=== PATIENT | male | born 1995 | race Caucasian/White ===

== ENCOUNTER 2019-05-16 16:43 | Emergency (ER) | payer BC, OTHER ==
[~2019-05-16] VITALS: Ht 185.4 cm; Wt 86.3 kg
[2019-05-16] MEDS ORDERED: TETANUS,DIPTH,PERTUSS P/F (BOOSTRIX) 0.5 ML VIAL IM ONE (17:15)
--- NOTE | 2019-05-16 17:42 | ED Upper Extremity ---
General Chief Complaint: Upper Extremity Stated Complaint: L HAND INJ Nursing Triage Note: PT TO ED W/ PARENT FOR C/O LT HAND SWELLING ONSET LAST NOC AFTER HITTING A TREE. PT REPORTS WAS "DRUNK ET MAD AND IT SEEMED LIKE THE RIGHT THING TO DO." EDEMA ET ABRASION NOTED OVER 5TH KNUCKLE LT HAND. NO OTHER C/O VOICED. Nursing Sepsis Screen: No Definite Risk Source: patient Exam Limitations: no limitations History of Present Illness Date Seen by Provider: May 16, 2019 Time Seen by Provider: 17:08 Allergies and Home Medications Allergies Coded Allergies: No Known Drug Allergies (Unverified , 05/16/19) Past Jojskxf-Oixkuy-Lmjnrf Hx Patient Social History Alcohol Use: Rarely Uses Recreational Drug Use: No Drug of Choice: MARIJUANA Smoking Status: Never a Smoker 2nd Hand Smoke Exposure: No Recent Foreign Travel: No Contact w/Someone Who Travel: No Recent Infectious Disease Expo: No Recent Hopitalizations: No Physical Abuse: No Sexual Abuse: No Mistreated: No Fear: No Immunizations Up To Date Tetanus Booster (TDap): More than 5yrs Seasonal Allergies Seasonal Allergies: No Past Medical History Surgeries: Yes (left hand injury) Orthopedic, Tonsillectomy Respiratory: No Cardiac: No Neurological: No Genitourinary: No Gastrointestinal: No Musculoskeletal: No Endocrine: No HEENT: No Cancer: No Psychosocial: No Integumentary: Yes Eczema Blood Disorders: No Physical Exam Vital Signs Vital Signs - First Documented 05/16/19 17:05 Temp 36.1 Pulse 63 Resp 18 B/P (MAP) 131/75 (93) Pulse Ox 97 O2 Delivery Room Air Capillary Refill : Less Than 3 Seconds Height, Weight, BMI Height: '" Weight: lbs. oz. kg; 25.00 BMI Method: Progress/Results/Core Measures Results/Orders My Orders Orders - MIGUELINA SONG PA Hand, Left, 3 Views (05/16/19 17:07) Dipht,Pertuss(Acell),Tet Adult (Boostrix (05/16/19 17:15) Hydrocodone/Apap 5/325 Tablet (Lortab 5 (05/16/19 18:00) Medications Given in ED Current Medications Medications Dose Ordered Sig/Jamie Route Start Time Stop Time Status Last Admin Dose Admin Acetaminophen/ Hydrocodone Bitart 1 tab ONCE ONCE PO 05/16/19 18:00 05/16/19 18:01 05/16/19 17:53 1 TAB Diphtheria/ Tetanus/Acell Pertussis 0.5 ml ONCE ONCE IM 05/16/19 17:15 05/16/19 17:16 DC 05/16/19 17:22 0.5 ML Vital Signs/I&O 05/16/19 17:05 Temp 36.1 Pulse 63 Resp 18 B/P (MAP) 131/75 (93) Pulse Ox 97 O2 Delivery Room Air Blood Pressure Mean: 93 Departure Impression Primary Impression: Closed fracture of 3rd metacarpal Additional Impression: Closed fracture of 4th metacarpal Disposition: HOME, SELF-CARE Condition: Improved Departure-Patient Inst. Decision time for Depature: 17:57 Referrals: NO,LOCAL PHYSICIAN (PCP) Primary Care Physician BRITNI BECERRA MD Patient Instructions: Hand Fracture Add. Discharge Instructions: All discharge instructions reviewed with patient and/or family. Voiced understanding. Medications as instructed. No ibuprofen or Aleve. Keep the splint clean and dry. Arm sling as instructed. Right hand activities only until released by the orthopedic surgeon. Elevate the left hand on pillows and use an ice pack as needed for pain and swelling. Follow-up with Dr. Becerra as an outpatient within the next 7 days for recheck, call Friday morning for an appointment time. Return in the emergency department for worsened symptoms, increased pain from the splint, or any other concerns. 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 MIGUELINA SONG May 16, 2019 17:42
[2019-05-16] MEDS ORDERED: ACHD5005 PO (17:59)
[2019-05-16] MEDS ORDERED: HYDROcodone/APAP 5 MG/325 MG (LORTAB) TAB PO ONE (18:00)
[2019-05-16] MEDS ORDERED: RX-HYDROCODONE/APAP 5/325 MG #4 TAB PK PO PRN (18:15)
--- NOTE | 2019-05-16 18:24 | Diagnostic Imaging Report ---
Clinical indication: Patient punched a tree early this morning and has pain and swelling. Exam: X-ray of the left hand, 3 views. Comparison: None. Findings: Transverse fractures involving the mid diaphysis of the third and fourth metacarpal bones. There is mild dorsal apex angulation of these bones as well. There is no other fracture or dislocation seen. There is mild swelling of the metacarpal soft tissue region. Remainder of the left hand is unremarkable. Impression: There are transverse fractures involving the third and fourth metacarpal bones with dorsal apex angulation. Dictated by: Dictated on workstation # [id number]
[2019-05-16 18:48] VITALS: BP 130/81
== END 2019-05-16 18:48 | disposition home or self-care (01) ==
LOC: ER 16:45
DX: S62.303A Unspecified fracture of third metacarpal bone, left hand, initial encounter for closed fracture (principal); S62.305A Unspecified fracture of fourth metacarpal bone, left hand, initial encounter for closed fracture; Z90.89 Acquired absence of other organs; W22.8XXA Striking against or struck by other objects, initial encounter
CPT/HCPCS: 73130; 90715

== ENCOUNTER 2019-09-15 02:23 | Observation (INO) | payer BC ==
[~2019-09-15] VITALS: Ht 185 cm; Wt 90.3 kg
[2019-09-15] VITALS (11 sets, daily range): BP systolic 97–108; BP diastolic 44–70
[~2019-09-15 02:23] MED LIST: ACHD5005 PO
[2019-09-15 03:12] LABS: BASOPHILS % (AUTO) 0 % (0-10); EOSINOPHILS % (AUTO) 0 % (0-10); HEMATOCRIT 41 % (40-54); HEMOGLOBIN 14.4 G/DL (13.3-17.7); LYMPHOCYTES # (AUTO) 1.3 X 10^3 (1.0-4.0); LYMPHOCYTES % (AUTO) 7 % (12-44); MEAN CORPUSCULAR HEMOGLOBIN 30 PG (25-34); MEAN CORPUSCULAR HGB CONC 36 G/DL (32-36); MEAN CORPUSCULAR VOLUME 83 FL (80-99); MEAN PLATELET VOLUME 9.9 FL (7.4-10.4); MONOCYTES # (AUTO) 1.2 X 10^3 (0.0-1.0); MONOCYTES % (AUTO) 6 % (0-12); NEUTROPHILS # (AUTO) 16.2 X 10^3 (1.8-7.8); NEUTROPHILS % (AUTO) 87 % (42-75); PLATELET COUNT 242 10^3/uL (130-400); RED CELL DISTRIBUTION WIDTH 12.3 % (10.0-14.5); WHITE BLOOD COUNT 18.7 10^3/uL (4.3-11.0)
[2019-09-15] MEDS ORDERED: NS IV 1000 ML 1,000 ML IV SCH (03:15)
[2019-09-15 03:32] LABS: ACETAMINOPHEN < 10 UG/ML (10-30); SALICYLATE < 5.0 MG/DL (5.0-20.0)
[2019-09-15 03:33] LABS: ALANINE AMINOTRANSFERASE 28 U/L (0-55); ALBUMIN 4.6 GM/DL (3.2-4.5); ALKALINE PHOSPHATASE 62 U/L (40-136); BILIRUBIN,TOTAL 0.7 MG/DL (0.1-1.0); BUN/CREATININE RATIO 13; CALCIUM 9.2 MG/DL (8.5-10.1); CARBON DIOXIDE 19 MMOL/L (21-32); CHLORIDE 106 MMOL/L (98-107); CREATININE SERUM 1.33 MG/DL (0.60-1.30); GFR ESTIMATED > 60; GLUCOSE 115 MG/DL (70-105); MAGNESIUM 1.9 MG/DL (1.6-2.4); POTASSIUM 3.6 MMOL/L (3.6-5.0); SODIUM 140 MMOL/L (135-145)
[2019-09-15 03:40] LABS: BILIRUBIN,URINE NEGATIVE (NEGATIVE); CLARITY,URINE CLEAR; COLOR,URINE YELLOW; GLUCOSE, URINE (UA) NEGATIVE (NEGATIVE); KETONES,URINE NEGATIVE (NEGATIVE); LEUKOCYTE ESTERASE ,URINE NEGATIVE (NEGATIVE); NITRITE,URINE NEGATIVE (NEGATIVE); PROTEIN,URINE NEGATIVE (NEGATIVE)
[2019-09-15 03:51] LABS: BACTERIA,URINE FEW /HPF; SQUAMOUS EPITHELIAL CELL,UR 0-2 /HPF; WBC,URINE RARE /HPF
[2019-09-15 03:52] LABS: AMPHETAMINE SCREEN, URINE NEGATIVE (NEGATIVE); BARBITURATE SCREEN URINE NEGATIVE (NEGATIVE); BENZODIAZEPINES SCREEN URINE NEGATIVE (NEGATIVE); CANNABINOID SCREEN, URINE POSITIVE (NEGATIVE); COCAINE SCREEN URINE NEGATIVE (NEGATIVE); METHADONE STAT NEGATIVE (NEGATIVE); METHAMPHETAMINE SCREEN URINE S NEGATIVE (NEGATIVE); OPIATE SCREEN URINE NEGATIVE (NEGATIVE); OXYCODONE STAT NEGATIVE (NEGATIVE); PROPOXYPHENE STAT NEGATIVE (NEGATIVE); TRICYCLIC ANTIDEPRESSANTS SCRE NEGATIVE (NEGATIVE)
--- NOTE | 2019-09-15 04:15 | ED General ---
General Chief Complaint: General Problems/Pain Stated Complaint: PT HAS BEEN BLACKING OUT Nursing Triage Note: Pt ambulates to RM 6 with c/o "passing out". Pt friends at bedside and states he "took a hit of a dab at midnight then would have periods of holding his breath then passes out for 4-5 sec". Pt states he doesn't feel dizzy or feel like passing out now, states "I just feel really high and tired". Nursing Sepsis Screen: No Definite Risk Source of Information: Patient, Other (Friends) Exam Limitations: Intoxication History of Present Illness Date Seen by Provider: Sep 15, 2019 Time Seen by Provider: 02:29 Initial Comments This 24-year-old young man presents to the emergency room accompanied by friends with complaints of "blacking out". At midnight he smoked a large quantity of high concentration THC called a "dab". Symptoms started after that. His companions report he is extremely drowsy and difficult to arouse. Patient feels extremely somnolent. He is technically alert and oriented. He is noted to be bradycardic with a heart rate as low as 32 on the monitor. He admits to drinking half of a beer as well. He appears rather pale. Allergies and Home Medications Allergies Coded Allergies: No Known Drug Allergies (Unverified , 05/16/19) Home Medications Hydrocodone Bit/Acetaminophen 1 Tab Tab, 1 EACH PO Q4-6HR PRN for PAIN-MODERATE Prescribed by: MIGUELINA SONG on 05/16/19 9932 Patient Home Medication List Home Medication List Reviewed: Yes Review of Systems Review of Systems Constitutional: see HPI EENTM: no symptoms reported Respiratory: no symptoms reported Cardiovascular: see HPI Gastrointestinal: no symptoms reported Genitourinary: no symptoms reported Musculoskeletal: no symptoms reported Skin: no symptoms reported Psychiatric/Neurological: See HPI Hematologic/Lymphatic: No Symptoms Reported Immunological/Allergic: no symptoms reported Past Vxjnjhh-Slvidg-Awlzfs Hx Past Med/Social Hx: Reviewed Nursing Past Med/Soc Hx Patient Social History Alcohol Use: Rarely Uses Recreational Drug Use: Yes Drug of Choice: MARIJUANA Smoking Status: Never a Smoker 2nd Hand Smoke Exposure: No Recent Foreign Travel: No Contact w/Someone Who Travel: No Recent Infectious Disease Expo: No Recent Hopitalizations: No Physical Abuse: No Sexual Abuse: No Mistreated: No Fear: No Immunizations Up To Date Tetanus Booster (TDap): More than 5yrs Seasonal Allergies Seasonal Allergies: No Past Medical History Surgeries: Yes (left hand injury) Orthopedic, Tonsillectomy Respiratory: No Cardiac: No Neurological: No Genitourinary: No Gastrointestinal: No Musculoskeletal: No Endocrine: No HEENT: No Cancer: No Psychosocial: No Integumentary: Yes Eczema Blood Disorders: No Family Medical History Reviewed Nursing Family Hx No Pertinent Family Hx Physical Exam Vital Signs Vital Signs - First Documented 09/15/19 03:08 Temp 36.4 Pulse 91 Resp 17 B/P (MAP) 139/74 (95) Pulse Ox 98 O2 Delivery Room Air Capillary Refill : Less Than 3 Seconds Height, Weight, BMI Height: '" Weight: lbs. oz. kg; 25.00 BMI Method: General Appearance: No Apparent Distress, WD/WN HEENT: PERRL/EOMI, Normal ENT Inspection, Pharynx Normal Neck: Normal Inspection Respiratory: Lungs Clear, Normal Breath Sounds, No Accessory Muscle Use, No Respiratory Distress Cardiovascular: Regular Rate, Rhythm, No Edema, No Murmur Gastrointestinal: Non Tender, Soft Extremity: Normal Inspection, No Pedal Edema Neurologic/Psychiatric: Alert, Oriented x3, No Motor/Sensory Deficits, Normal Mood/Affect, physician general internal medicine II-XII Norm as Tested, Other (very somnolent) Skin: Warm/Dry, Pallor Progress/Results/Core Measures Suspected Sepsis Recent Fever Within 48 Hours: No Infection Criteria Present: None New/Unexplained Altered Menta: No Sepsis Screen: No Definite Risk SIRS Temperature: Pulse: 91 Respiratory Rate: 17 Laboratory Tests 09/15/19 03:02: White Blood Count 18.7H Blood Pressure 139 /74 Mean: 95 Laboratory Tests 09/15/19 03:02: Creatinine 1.33H, Platelet Count 242, Total Bilirubin 0.7 Results/Orders Lab Results Laboratory Tests Test 09/15/19 03:02 09/15/19 03:20 Range/Units White Blood Count 18.7 H 4.3-11.0 10^3/uL Red Blood Count 4.87 4.35-5.85 10^6/uL Hemoglobin 14.4 13.3-17.7 G/DL Hematocrit 41 40-54 % Mean Corpuscular Volume 83 80-99 FL Mean Corpuscular Hemoglobin 30 25-34 PG Mean Corpuscular Hemoglobin Concent 36 32-36 G/DL Red Cell Distribution Width 12.3 10.0-14.5 % Platelet Count 242 130-400 10^3/uL Mean Platelet Volume 9.9 7.4-10.4 FL Neutrophils (%) (Auto) 87 H 42-75 % Lymphocytes (%) (Auto) 7 L 12-44 % Monocytes (%) (Auto) 6 0-12 % Eosinophils (%) (Auto) 0 0-10 % Basophils (%) (Auto) 0 0-10 % Neutrophils # (Auto) 16.2 H 1.8-7.8 X 10^3 Lymphocytes # (Auto) 1.3 1.0-4.0 X 10^3 Monocytes # (Auto) 1.2 H 0.0-1.0 X 10^3 Eosinophils # (Auto) 0.0 0.0-0.3 10^3/uL Basophils # (Auto) 0.0 0.0-0.1 10^3/uL Neutrophils % (Manual) 87 % Lymphocytes % (Manual) 9 % Monocytes % (Manual) 4 % Erythrocyte Sedimentation Rate 4 0-15 MM/HR Sodium Level 140 135-145 MMOL/L Potassium Level 3.6 3.6-5.0 MMOL/L Chloride Level 106 98-107 MMOL/L Carbon Dioxide Level 19 L 21-32 MMOL/L Anion Gap 15 H 5-14 MMOL/L Blood Urea Nitrogen 17 7-18 MG/DL Creatinine 1.33 H 0.60-1.30 MG/DL Estimat Glomerular Filtration Rate > 60 BUN/Creatinine Ratio 13 Glucose Level 115 H 70-105 MG/DL Calcium Level 9.2 8.5-10.1 MG/DL Corrected Calcium 8.5-10.1 MG/DL Magnesium Level 1.9 1.6-2.4 MG/DL Total Bilirubin 0.7 0.1-1.0 MG/DL Aspartate Amino Transf (AST/SGOT) 20 5-34 U/L Alanine Aminotransferase (ALT/SGPT) 28 0-55 U/L Alkaline Phosphatase 62 40-136 U/L Troponin I < 0.028 <0.028 NG/ML C-Reactive Protein High Sensitivity 0.05 0.00-0.50 MG/DL B-Type Natriuretic Peptide < 10.0 <100.0 PG/ML Total Protein 7.0 6.4-8.2 GM/DL Albumin 4.6 H 3.2-4.5 GM/DL Salicylates Level < 5.0 L 5.0-20.0 MG/DL Acetaminophen Level < 10 L 10-30 UG/ML Serum Alcohol < 10 <10 MG/DL Urine Color YELLOW Urine Clarity CLEAR Urine pH 6.0 5-9 Urine Specific [place] >=1.030 1.016-1.022 Urine Protein NEGATIVE NEGATIVE Urine Glucose (UA) NEGATIVE NEGATIVE Urine Ketones NEGATIVE NEGATIVE Urine Nitrite NEGATIVE NEGATIVE Urine Bilirubin NEGATIVE NEGATIVE Urine Urobilinogen 0.2 < = 1.0 MG/DL Urine Leukocyte Esterase NEGATIVE NEGATIVE Urine RBC (Auto) NEGATIVE NEGATIVE Urine RBC NONE /HPF Urine WBC RARE /HPF Urine Squamous Epithelial Cells 0-2 /HPF Urine Crystals NONE /LPF Urine Bacteria FEW H /HPF Urine Casts NONE /LPF Urine Mucus NEGATIVE /LPF Urine Culture Indicated NO Urine Opiates Screen NEGATIVE NEGATIVE Urine Oxycodone Screen NEGATIVE NEGATIVE Urine Methadone Screen NEGATIVE NEGATIVE Urine Propoxyphene Screen NEGATIVE NEGATIVE Urine Barbiturates Screen NEGATIVE NEGATIVE Ur Tricyclic Antidepressants Screen NEGATIVE NEGATIVE Urine Phencyclidine Screen NEGATIVE NEGATIVE Urine Amphetamines Screen NEGATIVE NEGATIVE Urine Methamphetamines Screen NEGATIVE NEGATIVE Urine Benzodiazepines Screen NEGATIVE NEGATIVE Urine Cocaine Screen NEGATIVE NEGATIVE Urine Cannabinoids Screen POSITIVE H NEGATIVE My Orders Orders - ARIANE COATES MD Ed Iv/Invasive Line Start (09/15/19 02:29) Ekg Tracing (09/15/19 02:29) Cbc With Automated Diff (09/15/19 02:29) Comprehensive Metabolic Panel (09/15/19 02:29) Magnesium (09/15/19 02:29) Ua Culture If Indicated (09/15/19 02:29) Acetaminophen (09/15/19 03:15) Alcohol (09/15/19 03:15) Drug Screen Stat (Urine) (09/15/19 03:15) Salicylate (09/15/19 03:15) Ns Iv 1000 Ml (Sodium Chloride 0.9%) (09/15/19 03:15) Manual Differential (09/15/19 03:02) Hs C Reactive Protein (09/15/19 03:17) Troponin I (09/15/19 03:17) Erythrocyte Sedimentation Rate (09/15/19 03:17) BNP (09/15/19 03:21) Chest 1 View, Ap/Pa Only (09/15/19 03:21) Vital Signs/I&O 09/15/19 09/15/19 09/15/19 09/15/19 03:08 04:39 04:54 05:00 Temp 36.4 36.4 36.4 Pulse 91 55 59 47 Resp 17 17 13 B/P (MAP) 139/74 (95) 139/74 (95) 107/55 (72) Pulse Ox 98 98 96 O2 Delivery Room Air Room Air Room Air 09/15/19 09/15/19 09/15/19 09/15/19 05:11 05:15 05:30 05:45 Pulse 47 48 48 Resp 12 13 13 B/P (MAP) 101/56 (71) 101/54 (70) 103/52 (69) Pulse Ox 96 96 95 O2 Delivery Room Air Room Air Room Air Room Air 09/15/19 06:00 Pulse 48 Resp 12 B/P (MAP) 101/60 (74) Pulse Ox 97 O2 Delivery Room Air Capillary Refill : Less Than 3 Seconds Blood Pressure Mean: 95 Progress Note : Progress Note Patient was seen and evaluated. A liter of IV fluid was infused. The bradycardia as low as 32 was rather concerning. Poison control was contacted and recommended no particular treatment but observing heart rate until it normalizes. Patient was admitted to the ICU for monitoring. ECG Initial ECG Impression Date: Sep 15, 2019 Initial ECG Impression Time: 03:14 Initial ECG Rate: 46 Initial ECG Rhythm: S.Fly Comment Sinus bradycardia with diffuse ST elevation suggestive of pericarditis. No axis deviation. Diagnostic Imaging Diagonstic Imaging: Xray Plain Films/CT/US/NM/MRI: chest Comments Chest x-ray viewed by me. Report not yet available. No acute abnormalities appreciated. Departure Communication (Admissions) Time/Spoke to Admitting Phy: 04:07 Dr. Coburn Impression Primary Impression: Marijuana intoxication Qualified Codes: F12.929 - Cannabis use, unspecified with intoxication, unspecified Additional Impression: Symptomatic bradycardia Disposition: 09 ADMITTED INPATIENT Condition: Stable Admissions Decision to Admit Reason: Admit from ER (General) Decision to Admit/Date: Sep 15, 2019 Time/Decision to Admit Time: 04:00 Departure-Patient Inst. Referrals: NO,LOCAL PHYSICIAN (PCP/Family) Primary Care Physician ARIANE COATES MD Sep 15, 2019 04:15
[2019-09-15 04:28] LABS: LYMPHOCYTES % (MANUAL) 9 %; MONOCYTES % (MANUAL) 4 %; NEUTROPHILS % (MANUAL) 87 %
[2019-09-15] MEDS ORDERED: LACTATED RINGERS 1,000 ML IV ONE (04:51)
[2019-09-15] MEDS ORDERED: ONDANSETRON 4 MG/2 ML (SDV) Z0FRAN IV PRN (05:00)
[2019-09-15] MEDS: LACTATED RINGERS 1,000 ML IV SCH ×2 (05:05→12:33)
--- NOTE | 2019-09-15 05:59 | Pulmonary Consultation ---
History of Present Illness History of Present Illness Date Seen by Provider: Sep 15, 2019 Time Seen by Provider: 05:59 Date of Admission Allergies and Home Medications Allergies Coded Allergies: No Known Drug Allergies (Unverified , 05/16/19) Home Medications Hydrocodone Bit/Acetaminophen 1 Tab Tab, 1 EACH PO Q4-6HR PRN for PAIN-MODERATE Prescribed by: MIGUELINA SONG on 05/16/19 2742 Past Iqtgusq-Zyetsq-Havldq Hx Patient Social History Alcohol Use: Rarely Uses Recreational Drug Use: Yes Drug of Choice: MARIJUANA Smoking Status: Never a Smoker 2nd Hand Smoke Exposure: No Recent Foreign Travel: No Contact w/Someone Who Travel: No Recent Infectious Disease Expo: No Recent Hopitalizations: No Physical Abuse: No Sexual Abuse: No Mistreated: No Fear: No Immunizations Up To Date Tetanus Booster (TDap): More than 5yrs Seasonal Allergies Seasonal Allergies: No Past Medical History Surgeries: Yes (left hand injury) Orthopedic, Tonsillectomy Respiratory: No Cardiac: No Neurological: No Genitourinary: No Gastrointestinal: No Musculoskeletal: No Endocrine: No HEENT: No Cancer: No Psychosocial: No Integumentary: Yes Eczema Blood Disorders: No Family Medical History No Pertinent Family Hx Sepsis Event Evaluation Height, Weight, BMI Height: '" Weight: lbs. oz. kg; 25.00 BMI Method: Exam Exam Vital Signs Date Time Temp Pulse Resp B/P (MAP) Pulse Ox O2 Delivery O2 Flow Rate FiO2 09/15/19 05:45 48 13 103/52 (69) 95 Room Air 09/15/19 05:30 48 13 101/54 (70) 96 Room Air 09/15/19 05:15 47 12 101/56 (71) 96 Room Air 09/15/19 05:11 Room Air 09/15/19 05:00 36.4 47 13 107/55 (72) 96 Room Air 09/15/19 04:54 59 09/15/19 04:39 36.4 55 17 139/74 (95) 98 Room Air 09/15/19 03:08 36.4 91 17 139/74 (95) 98 Room Air I & O 09/15/19 07:00 Intake Total 1000 ml Balance 1000 ml Height & Weight Height: '" Weight: lbs. oz. kg; 25.00 BMI Method: Capillary Refill: Less Than 3 Seconds Results Lab Laboratory Tests 2/19/20 03:02 NYASIA OTERO DO Sep 15, 2019 05:59
[2019-09-15] MEDS ORDERED: LACTATED RINGERS 1,000 ML IV SCH (06:00)
--- NOTE | 2019-09-15 06:20 | Diagnostic Imaging Report ---
CHEST 1 VIEW, AP/PA ONLY Indication: Passed out, intoxicated and tired Comparison: None available. Findings: No focal airspace disease in the visualized lungs. Please note that the posterior lower lobes are poorly evaluated by portable radiography. No pleural effusion or pneumothorax. Normal cardiomediastinal silhouette. Impression: 1. No acute cardiopulmonary process by portable radiography. Dictated by: Dictated on workstation # [id number]
--- NOTE | 2019-09-15 08:55 | NUR ---
DR YAA WOODALL CAN GO HOME FROM HIS STANDPOINT IF 0900 TROPONIN IS NEGATIVE. Addendum: 09/15/19 at 1222 by ENRIKE CARRION RN DR EMILY MON PT CAN GO HOME FROM HIS STANDPOINT IF 0900 TROPONIN IS NEGATIVE.
--- NOTE | 2019-09-15 09:36 | NUR ---
SPOKE WITH PT TO COMPLETE THE MED REC. PT DENIES BEING ON ANY PRESCRIPTION OR OTC MEDS I DID UPDATE HIS PREFERRED PHARM TO [facility]
--- NOTE | 2019-09-15 11:00 | Consultation-Cardiology ---
HPI-Cardiology Cardiology Consultation Date of Consultation 09/15/19 Date of Admission Time Seen by Provider: 10:57 Indication: Syncope HPI 24 years old gentleman with no significant past medical history, consumed large amount of THC and started to have multiple syncopal episode, he felt very dizzy and lightheaded and drowsy. Denied any chest pain, no similar episodes in the past. No palpitation, he was bradycardic. Reported history of being fairly active with running track and focal. Currently more awake. Home Medications & Allergies Allergies: Coded Allergies: No Known Drug Allergies (Unverified , 05/16/19) Home Medication List Reviewed: Yes AOP-Kjaifo-Efhedr Hx Patient Social History Marital Status: single Alcohol Use: Rarely Uses Recreational Drug Use: Yes Drug of Choice: MARIJUANA Smoking Status: Never a Smoker 2nd Hand Smoke Exposure: No Recent Foreign Travel: No Recent Infectious Disease Expo: No Recent Hopitalizations: No Immunizations Up To Date Tetanus Booster (TDap): More than 5yrs Past Medical History No past medical history Family Medical History Significant Family History: No Pertinent Family Hx Family Medical Hx Noncontributory Review of Systems-General Review of Systems Constitutional: see HPI, malaise EENTM: no symptoms reported Respiratory: see HPI; No cough, No dyspnea on exertion, No hemoptysis, No orthopnea, No phlegm, No short of breath, No stridor, No wheezing, No other Cardiovascular: see HPI; No chest pain, No edema, No Hx of Intervention, No palpitations; syncope; No vascular heart diseas, No other Gastrointestinal: no symptoms reported, see HPI Genitourinary: no symptoms reported, see HPI Musculoskeletal: no symptoms reported, see HPI Skin: no symptoms reported, see HPI Psychiatric/Neurological: See HPI Reviewed Test Results Reviewed Test Results Lab Laboratory Tests Test 09/15/19 03:02 09/15/19 03:20 09/15/19 09:05 Range/Units White Blood Count 18.7 H 4.3-11.0 10^3/uL Red Blood Count 4.87 4.35-5.85 10^6/uL Hemoglobin 14.4 13.3-17.7 G/DL Hematocrit 41 40-54 % Mean Corpuscular Volume 83 80-99 FL Mean Corpuscular Hemoglobin 30 25-34 PG Mean Corpuscular Hemoglobin Concent 36 32-36 G/DL Red Cell Distribution Width 12.3 10.0-14.5 % Platelet Count 242 130-400 10^3/uL Mean Platelet Volume 9.9 7.4-10.4 FL Neutrophils (%) (Auto) 87 H 42-75 % Lymphocytes (%) (Auto) 7 L 12-44 % Monocytes (%) (Auto) 6 0-12 % Eosinophils (%) (Auto) 0 0-10 % Basophils (%) (Auto) 0 0-10 % Neutrophils # (Auto) 16.2 H 1.8-7.8 X 10^3 Lymphocytes # (Auto) 1.3 1.0-4.0 X 10^3 Monocytes # (Auto) 1.2 H 0.0-1.0 X 10^3 Eosinophils # (Auto) 0.0 0.0-0.3 10^3/uL Basophils # (Auto) 0.0 0.0-0.1 10^3/uL Neutrophils % (Manual) 87 % Lymphocytes % (Manual) 9 % Monocytes % (Manual) 4 % Erythrocyte Sedimentation Rate 4 0-15 MM/HR Sodium Level 140 135-145 MMOL/L Potassium Level 3.6 3.6-5.0 MMOL/L Chloride Level 106 98-107 MMOL/L Carbon Dioxide Level 19 L 21-32 MMOL/L Anion Gap 15 H 5-14 MMOL/L Blood Urea Nitrogen 17 7-18 MG/DL Creatinine 1.33 H 0.60-1.30 MG/DL Estimat Glomerular Filtration Rate > 60 BUN/Creatinine Ratio 13 Glucose Level 115 H 70-105 MG/DL Calcium Level 9.2 8.5-10.1 MG/DL Corrected Calcium 8.5-10.1 MG/DL Magnesium Level 1.9 1.6-2.4 MG/DL Total Bilirubin 0.7 0.1-1.0 MG/DL Aspartate Amino Transf (AST/SGOT) 20 5-34 U/L Alanine Aminotransferase (ALT/SGPT) 28 0-55 U/L Alkaline Phosphatase 62 40-136 U/L Troponin I < 0.028 < 0.028 <0.028 NG/ML C-Reactive Protein High Sensitivity 0.05 0.00-0.50 MG/DL B-Type Natriuretic Peptide < 10.0 <100.0 PG/ML Total Protein 7.0 6.4-8.2 GM/DL Albumin 4.6 H 3.2-4.5 GM/DL Salicylates Level < 5.0 L 5.0-20.0 MG/DL Acetaminophen Level < 10 L 10-30 UG/ML Serum Alcohol < 10 <10 MG/DL Urine Color YELLOW Urine Clarity CLEAR Urine pH 6.0 5-9 Urine Specific [place] >=1.030 1.016-1.022 Urine Protein NEGATIVE NEGATIVE Urine Glucose (UA) NEGATIVE NEGATIVE Urine Ketones NEGATIVE NEGATIVE Urine Nitrite NEGATIVE NEGATIVE Urine Bilirubin NEGATIVE NEGATIVE Urine Urobilinogen 0.2 < = 1.0 MG/DL Urine Leukocyte Esterase NEGATIVE NEGATIVE Urine RBC (Auto) NEGATIVE NEGATIVE Urine RBC NONE /HPF Urine WBC RARE /HPF Urine Squamous Epithelial Cells 0-2 /HPF Urine Crystals NONE /LPF Urine Bacteria FEW H /HPF Urine Casts NONE /LPF Urine Mucus NEGATIVE /LPF Urine Culture Indicated NO Urine Opiates Screen NEGATIVE NEGATIVE Urine Oxycodone Screen NEGATIVE NEGATIVE Urine Methadone Screen NEGATIVE NEGATIVE Urine Propoxyphene Screen NEGATIVE NEGATIVE Urine Barbiturates Screen NEGATIVE NEGATIVE Ur Tricyclic Antidepressants Screen NEGATIVE NEGATIVE Urine Phencyclidine Screen NEGATIVE NEGATIVE Urine Amphetamines Screen NEGATIVE NEGATIVE Urine Methamphetamines Screen NEGATIVE NEGATIVE Urine Benzodiazepines Screen NEGATIVE NEGATIVE Urine Cocaine Screen NEGATIVE NEGATIVE Urine Cannabinoids Screen POSITIVE H NEGATIVE Physical Exam Physical Exam Vital Signs Vital Signs - First Documented 09/15/19 03:08 Temp 36.4 Pulse 91 Resp 17 B/P (MAP) 139/74 (95) Pulse Ox 98 O2 Delivery Room Air Capillary Refill : Less Than 3 Seconds Height, Weight, BMI Height: '" Weight: lbs. oz. kg; 25.00 BMI Method: General Appearance: No Apparent Distress, WD/WN Eyes: Bilateral Eye Normal Inspection, Bilateral Eye PERRL, Bilateral Eye EOMI HEENT: PERRL/EOMI, Normal ENT Inspection, Pharynx Normal Neck: Normal Inspection Respiratory: Lungs Clear, Normal Breath Sounds, No Accessory Muscle Use, No Respiratory Distress Cardiovascular: Regular Rate, Rhythm, No Edema, No Murmur Gastrointestinal: Non Tender, Soft Back: Normal Inspection, No CVA Tenderness, No Vertebral Tenderness Extremity: Normal Inspection, No Pedal Edema Neurologic/Psychiatric: Alert, Oriented x3, No Motor/Sensory Deficits, Normal Mood/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 Abnormal EKG with sinus bradycardia and borderline hypotension, receiving IV fluid. Fairly active, was part stating in track and football. ST changes suggestive of juvenile pattern. Continue to monitor. Next Echocardiogram was done showing normal LV size and function, continue to monitor Acute renal insufficiency due to hypovolemia, receiving IV fluid. Continue to monitor next Tobaccoism, educated on smoking cessation Clinical Quality Measures DVT/VTE Risk/Contraindication: Risk Factor Score Per Nursin RFS Level Per Nursing on Admit: 1=Low/No VTE PPX GENI DIAZ MD Sep 15, 2019 11:00
--- NOTE | 2019-09-15 11:23 | Discharge Summary ---
Discharge Summary Hospital Course Was the Problem List Reviewed?: Yes Problems/Dx: (1) Marijuana intoxication Status: Acute Qualifiers: Qualified Codes: F12.929 - Cannabis use, unspecified with intoxication, unspecified Hospital Course Date of Admission: Sep 15, 2019 at 04:09 Admission Diagnosis : Marijuana intoxication Family Physician/Provider: No,Local Physician Date of Discharge: 09/15/19 Discharge Diagnosis: Marijuana intoxication Hospital Course: Ezra Guadarrama is a 24-year-old male who presented with syncope following marijuana use. 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 Last night at midnight he smoked for the first time in weeks and he had an adverse reaction. He was feeling lightheaded and dizzy and reports passing out multiple times. His EKG showed sinus bradycardia. He underwent an echocardiogram which was normal. He was evaluated and cleared by cardiology. He was discharged home with the recommendation to stop smoking marijuana and establish care with a primary care physician. Labs and Pending Lab Test: Laboratory Tests 09/15/19 03:02: White Blood Count 18.7H, Red Blood Count 4.87, Hemoglobin 14.4, Hematocrit 41, Mean Corpuscular Volume 83, Mean Corpuscular Hemoglobin 30, Mean Corpuscular Hemoglobin Concent 36, Red Cell Distribution Width 12.3, Platelet Count 242, Mean Platelet Volume 9.9, Neutrophils (%) (Auto) 87H, Lymphocytes (%) (Auto) 7L, Monocytes (%) (Auto) 6, Eosinophils (%) (Auto) 0, Basophils (%) (Auto) 0, Neutrophils # (Auto) 16.2H, Lymphocytes # (Auto) 1.3, Monocytes # (Auto) 1.2H, Eosinophils # (Auto) 0.0, Basophils # (Auto) 0.0, Neutrophils % (Manual) 87, Lymphocytes % (Manual) 9, Monocytes % (Manual) 4, Erythrocyte Sedimentation Rate 4, Sodium Level 140, Potassium Level 3.6, Chloride Level 106, Carbon Dioxide Level 19L, Anion Gap 15H, Blood Urea Nitrogen 17, Creatinine 1.33H, Estimat Glomerular Filtration Rate > 60, BUN/Creatinine Ratio 13, Glucose Level 115H, Calcium Level 9.2, Corrected Calcium , Magnesium Level 1.9, Total Bilirubin 0.7, Aspartate Amino Transf (AST/SGOT) 20, Alanine Aminotransferase (ALT/SGPT) 28, Alkaline Phosphatase 62, Troponin I < 0.028, C-Reactive Protein High Sensitivity 0.05, B-Type Natriuretic Peptide < 10.0, Total Protein 7.0, Albumin 4.6H, Salicylates Level < 5.0L, Acetaminophen Level < 10L, Serum Alcohol < 10 09/15/19 03:20: Urine Color YELLOW, Urine Clarity CLEAR, Urine pH 6.0, Urine Specific [place] >=1.030, Urine Protein NEGATIVE, Urine Glucose (UA) NEGATIVE, Urine Ketones NEGATIVE, Urine Nitrite NEGATIVE, Urine Bilirubin NEGATIVE, Urine Urobilinogen 0.2, Urine Leukocyte Esterase NEGATIVE, Urine RBC (Auto) NEGATIVE, Urine RBC NONE, Urine WBC RARE, Urine Squamous Epithelial Cells 0-2, Urine Crystals NONE, Urine Bacteria FEWH, Urine Casts NONE, Urine Mucus NEGATIVE, Urine Culture Indicated NO, Urine Opiates Screen NEGATIVE, Urine Oxycodone Screen NEGATIVE, Urine Methadone Screen NEGATIVE, Urine Propoxyphene Screen NEGATIVE, Urine Barbiturates Screen NEGATIVE, Ur Tricyclic Antidepressants Screen NEGATIVE, Urine Phencyclidine Screen NEGATIVE, Urine Amphetamines Screen NEGATIVE, Urine Methamphetamines Screen NEGATIVE, Urine Benzodiazepines Screen NEGATIVE, Urine Cocaine Screen NEGATIVE, Urine Cannabinoids Screen POSITIVEH 09/15/19 09:05: Troponin I < 0.028 Home Meds Active No Active Prescriptions or Reported Medications Assessment/Pt Instructions Discontinue marijuana use. Establish care with a primary care physician. Discharge Planning: <30 minutes discharge planning Discharge Instructions Discharge Diet: No Restrictions Activity as Tolerated: Yes Discharge Physical Examination Vital Signs Vital Signs Date Time Temp Pulse Resp B/P (MAP) Pulse Ox O2 Delivery O2 Flow Rate FiO2 09/15/19 07:11 36.9 09/15/19 06:50 53 09/15/19 06:00 12 101/60 (74) 97 Room Air General Appearance: No Apparent Distress, WD/WN Respiratory: Lungs Clear, Normal Breath Sounds, No Respiratory Distress Cardiovascular: Regular Rate, Rhythm, No Edema, No Murmur Gastrointestinal: Normal Bowel Sounds, Non Tender, Soft Extremity: Normal Inspection, Non Tender, No Pedal Edema Skin: Normal Color, Warm/Dry Neurologic/Psychiatric: Alert, Oriented x3, No Motor/Sensory Deficits, Normal Mood/Affect Allergies: Coded Allergies: No Known Drug Allergies (Unverified , 05/16/19) Discharge Summary Date of Admission Sep 15, 2019 at 04:09 Date of Discharge Discharge Date: Sep 15, 2019 Discharge Time: 11:11 Admission Diagnosis Marijuana intoxication Consults/Procedures Consulations Cardiology Discharge Diagnosis (1) Marijuana intoxication Status: Acute Qualifiers: Qualified Codes: F12.929 - Cannabis use, unspecified with intoxication, unspecified Clinical Quality Measures DVT/VTE Risk/Contraindication: Risk Factor Score Per Nursin RFS Level Per Nursing on Admit: 1=Low/No VTE PPX SLIME ASTORGA MD Sep 15, 2019 11:22
--- NOTE | 2019-09-15 12:00 | NUR ---
THIS NURSE EDUCATED PT ON DISCHARGE INSTRUCTIONS. PT STATED UNDERSTANDING. PT WALKED DOWN WITH PERSONAL BELONGINGS WITH NURSE. PT TAKEN HOME BY GIRLFRIEND.
[2019-09-15] MEDS ORDERED: REGADENOSON 0.4 MG/5 ML SYR (LEXISCAN) IV ONE (12:05)
== END 2019-09-15 12:05 | disposition home or self-care (01) ==
LOC: EDUNIT# 02:23 → ER 02:25 → ICU 04:09
PROVIDERS: ADMIT Internal Medicine; ATTEND Internal Medicine
DX: F12.929 Cannabis use, unspecified with intoxication, unspecified (principal); R55 Syncope and collapse; R00.1 Bradycardia, unspecified; R94.39 Abnormal result of other cardiovascular function study; N28.9 Disorder of kidney and ureter, unspecified; I10 Essential (primary) hypertension; Z79.891 Long term (current) use of opiate analgesic; Z90.89 Acquired absence of other organs
CPT/HCPCS: 36415; 71045; 80053; 80306; 80320; 80329; 81000; 83735; 83880; 84484; 85007; 85027; 85652; 86141; 87081; 93005; 93306; G0378

== ENCOUNTER 2020-01-20 18:28 | Emergency (ER) | payer BC ==
[~2020-01-20] VITALS: Ht 187 cm; Wt 90.9 kg
[2020-01-20 18:30] VITALS: BP 134/93
--- OUTSIDE RECORDS SUMMARY | 2020-01-20 18:34 | XMS REPORT | Continuity of Care Document ---
Author Organization Unknown Address Unknown Phone Unavailable Allergies Active Description Code Type Severity Reaction Onset Reported/Identified Relationship to Patient Clinical Status Yes No Known Drug Allergies [id number] Drug Allergy Unknown N/A 05/16/2019 Medications There is no data. Problems Date Dx Coded Attending Type Code Diagnosis Diagnosed By 05/16/2019 MIGUELINA YEPEZ Ot M79.642 PAIN IN LEFT HAND 05/16/2019 MIGUELINA YEPEZ Ot S62.303A UNSP FRACTURE OF THIRD METACARPAL BONE, 05/16/2019 MIGUELINA YEPEZ Ot S62.305A UNSP FRACTURE OF FOURTH METACARPAL BONE, 05/16/2019 MIGUELINA YEPEZ Ot W22.8XXA STRIKING AGAINST OR STRUCK BY OTHER OBJE 05/16/2019 MIGUELINA YEPEZ Ot Z90.89 ACQUIRED ABSENCE OF OTHER ORGANS 05/19/2019 MIGUELINA YEPEZ Ot M79.642 PAIN IN LEFT HAND 05/19/2019 MIGUELINA YEPEZ Ot S62.303A UNSP FRACTURE OF THIRD METACARPAL BONE, 05/19/2019 MIGUELINA YEPEZ Ot S62.305A UNSP FRACTURE OF FOURTH METACARPAL BONE, 05/19/2019 MIGUELINA YEPEZ Ot W22.8XXA STRIKING AGAINST OR STRUCK BY OTHER OBJE 05/19/2019 MIGUELINA YEPEZ Ot Z90.89 ACQUIRED ABSENCE OF OTHER ORGANS 2019 SOLIS DO, [place] Ot F12.92 9 CANNABIS USE, UNSPECIFIED WITH INTOXICAT 2019 SOLIS DO, [place] Ot I10 ESSENTIAL (PRIMARY) HYPERTENSION 2019 SOLIS DO, [place] Ot N28.9 DISORDER OF KIDNEY AND URETER, UNSPECIFI 2019 SOLIS DO, [place] Ot R00.1 BRADYCARDIA, UNSPECIFIED 2019 SOLIS DO, [place] Ot R55 SYNCOPE AND COLLAPSE 2019 SOLIS DO, [place] Ot R94.39 ABNORMAL RESULT OF OTHER CARDIOVASCULAR 2019 SOLIS DO, [place] Ot 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 2019 SOLIS DO, [place] Ot Z90.89 ACQUIRED ABSENCE OF OTHER ORGANS 2019 SOLIS DO, [place] Ot F12.92 9 CANNABIS USE, UNSPECIFIED WITH INTOXICAT 2019 SOLIS DO, [place] Ot I10 ESSENTIAL (PRIMARY) HYPERTENSION 2019 SOLIS DO, [place] Ot N28.9 DISORDER OF KIDNEY AND URETER, UNSPECIFI 2019 SOLIS DO, [place] Ot R00.1 BRADYCARDIA, UNSPECIFIED 2019 SOLIS DO, [place] Ot R55 SYNCOPE AND COLLAPSE 2019 SOLIS DO, [place] Ot R94.39 ABNORMAL RESULT OF OTHER CARDIOVASCULAR 2019 SOLIS DO, [place] Ot Z79.89 1 MCFP (CURRENT) USE OF OPIATE ANALGE 2019 SOLIS DO, [place] Ot Z90.89 ACQUIRED ABSENCE OF OTHER ORGANS Procedures There is no data. Results Test Result Range Complete blood count (CBC) with automate d white blood cell (WBC) differential - 09/15/19 03:02 Blood leukocytes automated count (number/volume) 18.7 10*3/uL 4.3-11.0 Blood erythrocytes automated count (number/volume) 4.87 10*6/uL 4.35-5.85 Venous blood hemoglobin measurement (mass/volume) 14.4 g/dL 13.3-17.7 Blood hematocrit (volume fraction) 41 % 40-54 Automated erythrocyte mean corpuscular volume 83 [ foz_us] 80-99 Automated erythrocyte mean corpuscular h emoglobin (mass per erythrocyte) 30 pg 25-34 Automated erythrocyte mean corpuscular h emoglobin concentration measurement (mass/volume) 36 g/dL 32-36 Automated erythrocyte distribution width ratio 12. 3 % 10.0- 14.5 Automated blood platelet count (count/volume) 242 10*3/uL 130-400 Automated blood platelet mean volume measurement 9.9 [foz_us] 7.4-10.4 Automated blood neutrophils/100 leukocytes 87 % 42-75 Automated blood lymphocytes/100 leukocytes 7 % 12-44 Blood monocytes/100 leukocytes 6 % 0-12 Automated blood eosinophils/100 leukocytes 0 % 0-10 Automated blood basophils/100 leukocytes 0 % 0-10 Blood neutrophils automated count (number/volume) 16.2 10*3 1.8-7.8 Blood lymphocytes automated count (number/volume) 1.3 10*3 1.0-4.0 Blood monocytes automated count (number/volume) 1. 2 10*3 0.0-1.0 Automated eosinophil count 0.0 10*3/uL 0 .0-0.3 Automated blood basophil count (count/volume) 0.0 10*3/uL 0.0-0.1 Serum or plasma salicylates measurement (mass/volume) - 09/15/19 03:02 Serum or plasma salicylates measurement (mass/volume) < mg/dL 5.0-20.0 Serum or plasma acetaminophen measuremen t (mass/volume) - 09/15/19 03:02 Serum or plasma acetaminophen measurement (mass/volume ) < ug/mL 10-30 Serum or plasma ethanol measurement (mas s/volume) - 09/15/19 03:02 Serum or plasma ethanol measurement (mass/volume) < mg/dL <10 Comprehensive metabolic panel - 09/15/19 03:02 Serum or plasma sodium measurement (moles/volume) 140 mmol/L 135-145 Serum or plasma potassium measurement (moles/volume) 3.6 mmol/L 3.6-5.0 Serum or plasma chloride measurement (moles/volume) 106 mmol/L 98-107 Carbon dioxide 19 mmol/L 21-32 Serum or plasma anion gap determination (moles/volume) 15 mmol/L 5-14 Serum or plasma urea nitrogen measurement (mass/volume ) 17 mg/dL 7-18 Serum or plasma creatinine measurement (mass/volume) 1.33 mg/dL 0.60-1.30 Serum or plasma urea nitrogen/creatinine mass ratio 13 NRG Serum or plasma creatinine measurement w ith calculation of estimated glomerular filtration rate > NRG Serum or plasma glucose measurement (mass/volume) 115 mg/dL 70-105 Serum or plasma calcium measurement (mass/volume) 9.2 mg/dL 8.5-10.1 Serum or plasma total bilirubin measurement (mass/volu me) 0.7 mg/dL 0.1-1.0 Serum or plasma alkaline phosphatase tiffany surement (enzymatic activity/volume) 62 U/L 40-136 Serum or plasma aspartate aminotransfera se measurement (enzymatic activity/volume) 20 U/L 5-34 Serum or plasma alanine aminotransferase measurement (enzymatic activity/volume) 28 U/L 0-55 Serum or plasma protein measurement (mass/volume) 7.0 g/dL 6.4-8.2 Serum or plasma albumin measurement (mass/volume) 4.6 g/dL 3.2-4.5 Magnesium - 09/15/19 03:02 Magnesium 1.9 mg/dL 1.6-2.4 Serum or plasma troponin i.cardiac measu rement (mass/volume) - 09/15/19 03:02 Serum or plasma troponin i.cardiac measurement (mass/v olume) < ng/mL <0.028 Serum or plasma C reactive protein measu rement (mass/volume) - 09/15/19 03:02 Serum or plasma C reactive protein measurement (mass/v olume) 0.05 mg/dL 0.00-0.50 Erythrocyte sedimentation rate by dominga gren method - 09/15/19 03:02 Erythrocyte sedimentation rate by westergren method 4 mm 0- 15 Serum or plasma lithium measurement (mol es/volume) - 09/15/19 03:02 BNP PT < 10.0 <100.0 Manual absolute plasma cell count - 08/28 04/16 03:02 Blood monocytes/100 leukocytes 4 % NRG Manual blood segmented neutrophils/100 leukocytes 87 % NRG Manual blood lymphocytes/100 leukocytes 9 % NRG Complete urinalysis with reflex to cultu re - 09/15/19 03:20 Urine color determination YELLOW NRG Urine clarity determination CLEAR NR G Urine pH measurement by test strip 6.0 5-9 Specific gravity of urine by test strip >= 1.016-1.022 Urine protein assay by test strip, semi-quantitative NEGATIVE NEGATIVE Urine glucose detection by automated test strip NE GATIVE NEGATIVE Erythrocytes detection in urine sediment by light micr oscopy NEGATIVE NEGATIVE Urine ketones detection by automated test strip NE GATIVE NEGATIVE Urine nitrite detection by test strip NEGATIVE NEGATIVE Urine total bilirubin detection by test strip NEGA TIVE NEGATIVE Urine urobilinogen measurement by automated test strip (mass/volume) 0.2 mg/dL < = 1.0 Urine leukocyte esterase detection by dipstick NEG ATIVE NEGATIVE Automated urine sediment erythrocyte cou nt by microscopy (number/high power field) NONE NRG Automated urine sediment leukocyte count by microscopy (number/high power field) RARE NRG Bacteria detection in urine sediment by light microsco py FEW NRG Squamous epithelial cells detection in u rine sediment by light microscopy 0-2 NRG Crystals detection in urine sediment by light microsco py NONE NRG Casts detection in urine sediment by light microscopy NONE NRG Mucus detection in urine sediment by light microscopy NEGATIVE NRG Complete urinalysis with reflex to culture NO NRG Urine drug screening test - 09/15/19 03: 20 Urine phencyclidine detection by screening method NEGATIVE NEGATIVE Urine benzodiazepines detection by screening method NEGATIVE NEGATIVE Urine cocaine detection NEGATIVE NEGATI VE Urine amphetamines detection by screening method N EGATIVE NEGATIVE Urine methamphetamine detection by screening method NEGATIVE NEGATIVE Urine cannabinoids detection by screening method P OSITIVE NEGATIVE Urine opiates detection by screening method NEGATI VE NEGATIVE Urine barbiturates detection NEGATIVE N EGATIVE Screening urine tricyclic antidepressants detection NEGATIVE NEGATIVE Urine methadone detection by screening method NEGA TIVE NEGATIVE Urine oxycodone detection NEGATIVE NEGA TIVE Urine propoxyphene detection NEGATIVE N EGATIVE Methicillin resistant Staphylococcus aur eus (MRSA) screening culture - 09/15/19 04:56 Methicillin resistant Staphylococcus aureus (MRSA) scr eening culture NEG NRG Serum or plasma troponin i.cardiac measu rement (mass/volume) - 09/15/19 09:05 Serum or plasma troponin i.cardiac measurement (mass/v olume) < ng/mL <0.028 Encounters ACCT No. Visit Date/Time Discharge Status Pt. Type Provider Facility Loc./Unit Complaint [id number] 2019 04:09:00 020 12:05:00 DIS Inpatient [place] SOLIS DO, V ia [facility] ICU THC TOXICITY,SYMPTOMATI C BRADYCARDIA,AMS [id number] 05/16/2019 16:45:00 019 18:48:00 DIS Emergency MIGUELINA YEPEZ Via [facility] ER L HAND INJ
--- NOTE | 2020-01-20 18:57 | ED Lower Extremity ---
General Chief Complaint: Laceration Stated Complaint: L LEG LAC Nursing Triage Note: ARRIVED VIA WC TO ROOM 06. STATES HE WAS ON A SLIP AND SLIDE AND WAS CUT BY ONE OF THE METAL STAKES ON HIS LEFT LOWER THIGH. Nursing Sepsis Screen: No Definite Risk Source: patient Exam Limitations: no limitations History of Present Illness Date Seen by Provider: Jan 20, 2020 Time Seen by Provider: 18:54 Initial Comments To ER with a laceration to the anterior thigh just above the knee. This is down to the subcutaneous tissue. Tetanus is up-to-date. It occurred from a steak that was sticking up above the ground in a slip and slide at his house. Onset: just prior to arrival Severity: moderate Pain/Injury Location: left thigh Method of Injury: fell Modifying Factors: Worse With Movement Allergies and Home Medications Allergies Coded Allergies: No Known Drug Allergies (Unverified , 05/16/19) Home Medications No Active Prescriptions or Reported Meds Patient Home Medication List Home Medication List Reviewed: Yes Review of Systems Constitutional: see HPI EENTM: see HPI Respiratory: no symptoms reported Cardiovascular: no symptoms reported Genitourinary: no symptoms reported Musculoskeletal: no symptoms reported Skin: no symptoms reported Psychiatric/Neurological: No Symptoms Reported Past Krdceid-Hhtoiv-Pkrwaf Hx Patient Social History Alcohol Use: Occasionally Uses Recreational Drug Use: No Drug of Choice: MARIJUANA Type Used: Electronic/Vapor 2nd Hand Smoke Exposure: No Recent Foreign Travel: No Contact w/Someone Who Travel: No Recent Infectious Disease Expo: No Recent Hopitalizations: No Immunizations Up To Date Tetanus Booster (TDap): More than 5yrs Seasonal Allergies Seasonal Allergies: No Past Medical History Surgeries: Yes (left hand injury) Orthopedic, Tonsillectomy Respiratory: No Cardiac: No Neurological: No Genitourinary: No Gastrointestinal: No Musculoskeletal: No Endocrine: No HEENT: No Cancer: No Psychosocial: No Integumentary: Yes Eczema Blood Disorders: No Family Medical History No Pertinent Family Hx Physical Exam Vital Signs Vital Signs - First Documented 01/20/20 18:30 Temp 37.2 Pulse 113 Resp 18 B/P (MAP) 134/93 (107) Pulse Ox 97 O2 Delivery Room Air Capillary Refill : Less Than 3 Seconds Height, Weight, BMI Height: '" Weight: lbs. oz. kg; 25.00 BMI Method: General Appearance: WD/WN, no apparent distress Respiratory: no respiratory distress, no accessory muscle use Hips: bilateral hip non-tender, bilateral hip normal inspection, bilateral hip normal range of motion Legs: left leg pain, left leg other (5 cm laceration just above the knee depth to the subcutaneous tissue. Still able to lift leg off the bed,) Knees: bilateral knee non-tender, bilateral knee normal inspection, bilateral knee normal range of motion Ankles: bilateral ankle non-tender, bilateral ankle normal inspection, bilateral ankle normal range of motion Feet: bilateral foot non-tender, bilateral foot normal inspection, bilateral foot normal range of motion Neurologic/Psychiatric: alert, normal mood/affect, oriented x 3 Skin: normal color, warm/dry Procedures/Interventions Wound Location: Upper Extremities Wound Length (cm): 5 Wound's Depth, Shape: linear, sub Q Wound Explored: clean Irrigated w/ Saline (ccs): 500 Anesthesia: 1% Lidocaine Volume Anesthetic (ccs): 5 Suture: Ethlion Suture Size: 4-0 Number of Sutures: 9 Layer Closure?: 1 Number Deep Layer Sutures: 0 Progress/Results/Core Measures Results/Orders Vital Signs/I&O 01/20/20 18:30 Temp 37.2 Pulse 113 Resp 18 B/P (MAP) 134/93 (107) Pulse Ox 97 O2 Delivery Room Air Blood Pressure Mean: 107 Departure Impression Primary Impression: Leg laceration Qualified Codes: S81.812A - Laceration without foreign body, left lower leg, initial encounter Disposition: 01 HOME, SELF-CARE Condition: Stable Departure-Patient Inst. Decision time for Depature: 18:56 Referrals: NO,LOCAL PHYSICIAN (PCP/Family) Primary Care Physician Patient Instructions: Laceration Repair With Stitches (DC) Add. Discharge Instructions: You can Shower letting water run over this starting tonight. Don't soak it in water such as a hot tub bath tub or swimming pool until the stitches are out. Keep an eye on this for any sign of infection such as redness or drainage. Keep it covered with a bandage to keep the stitches from snagging on shorts or bed sheets. Return to ER for any sign of infection. Otherwise come back in about 7- 10 days whenever it is convenient and if the stitches look like they are ready to come out at that time we will remove them All discharge instructions reviewed with patient and/or family. Voiced understanding. Scripts No Active Prescriptions or Reported Meds CAROLINA LYNN FRANCHISE SALES DIRECTOR Jan 20, 2020 18:57
== END 2020-01-20 19:03 | disposition home or self-care (01) ==
LOC: EDUNIT# 18:28 → ER 18:29
DX: S71.112A Laceration without foreign body, left thigh, initial encounter (principal); W26.8XXA Contact with other sharp object(s), not elsewhere classified, initial encounter; Y92.009 Unspecified place in unspecified non-institutional (private) residence as the place of occurrence of the external cause
CPT/HCPCS: 99282

== ENCOUNTER 2020-01-31 12:06 | Emergency (ER) | payer BC ==
[2020-01-31 12:10] VITALS: BP 136/79
--- OUTSIDE RECORDS SUMMARY | 2020-01-31 12:55 | XMS REPORT | Continuity of Care Document ---
Author Organization Unknown Address Unknown Phone Unavailable Allergies Active Description Code Type Severity Reaction Onset Reported/Identified Relationship to Patient Clinical Status Yes No Known Drug Allergies [id number] Drug Allergy Unknown N/A 05/16/2019 Medications There [...] CL[place] Ot I10 ESSENTIAL (PRIMARY) HYPERTENSION 2019 OSLIS DO, [place] Ot N28.9 DISORDER OF KIDNEY AND URETER, UNSPECIFI 2019 SOLIS DO, [place] Ot R00.1 BRADYCARDIA, UNSPECIFIED 2019 SOLIS DO, [place] Ot R55 SYNCOPE AND COLLAPSE 2019 SOLIS DO, [place] Ot R94.39 ABNORMAL RESULT OF OTHER CARDIOVASCULAR 2019 SOLIS DO, [place] Ot 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 Results Test [...] Status Pt. Type Provider Facility Loc./Unit Complaint [id number] 01/20/2020 18:29:00 020 19:03:00 DIS Outpatient CAROLINA LYNN APRN Via [facility] ER L LEG LAC [id number] 2019 04:09:00 020 12:05:00 DIS Inpatient WILL DO, [place] Gallardo ia [facility] ICU THC TOXICITY,SYMPTOMATI C BRADYCARDIA,AMS [id number] 05/16/2019 16:45:00 019 18:48:00 DIS Emergency MIGUELINA YEPEZ Via [facility] ER L HAND INJ
== END 2020-01-31 12:17 | disposition home or self-care (01) ==
LOC: EDUNIT# 12:06 → ER 12:07
DX: S71.112D Laceration without foreign body, left thigh, subsequent encounter (principal)
CPT/HCPCS: 99281